=== PATIENT | female | born 1950 | race Hispanic/Latino ===

== ENCOUNTER 2021-05-26 16:49 | Emergency (ER) | payer OTHER, MEDICARE ==
[~2021-05-26] VITALS: Ht 162.6 cm; Wt 90.7 kg
[2021-05-26] MEDS ORDERED: CEPHALEXIN 500 MG CAPSULE ONE (17:30)
[2021-05-26] MEDS ORDERED: TETANUS/DIPHTHERIA TOXOID [ADULT] 0.5 ML VIAL IM ONE ×2 (17:31→18:04)
[2021-05-26 18:02] VITALS: BP 149/85
[2021-05-26] MEDS ORDERED: CEPHALEXIN 500 MG CAPSULE PO SCH (18:04)
== END 2021-05-26 18:02 | disposition home or self-care (01) ==
LOC: EDH 16:49
DX: T23.202A Burn of second degree of left hand, unspecified site, initial encounter (principal); I10 Essential (primary) hypertension; Z88.0 Allergy status to penicillin; X12.XXXA Contact with other hot fluids, initial encounter; Y92.89 Other specified places as the place of occurrence of the external cause; Y93.G3 Activity, cooking and baking; Y99.8 Other external cause status
CPT/HCPCS: 16000; 90471; 90714